=== PATIENT | male | born 1950 | race Caucasian/White ===

== ENCOUNTER 2019-01-16 09:29 | Outpatient (CLI) | payer MEDICARE, BC, SELFPAY ==
--- NOTE | 2019-01-16 09:30 | DI.RAD_ITS ---
SYMPTOM/DIAGNOSIS: ACUTE, CHRONIC SHOULDER PAIN M25.519 RIGHT SHOULDER: There is spurring at the AC joint and inferior aspect of the acromion. Prominent spurring is also noted at the glenoid. Spurring is also seen at the lesser tuberosity. The humeral head appears normally positioned. IMPRESSION: Moderate degenerative changes of A-C joint and glenohumeral joint.
== END 2019-01-16 09:49 ==
PROVIDERS: PCP Family Medicine; Visit Provider Family Medicine
DX: M25.511 Pain in right shoulder (principal); M19.011 Primary osteoarthritis, right shoulder
CPT/HCPCS: 73030

== ENCOUNTER → 2019-01-28 08:55 | Outpatient (BNVA) | payer MEDICARE, BC, SELFPAY | PROVIDERS: PCP Family Medicine; Referring Provider Family Medicine; Visit Provider Orthopaedic Surgery | DX: M75.81 Other shoulder lesions, right shoulder (principal); M19.011 Primary osteoarthritis, right shoulder | CPT/HCPCS: 99202; 99203 ==

== ENCOUNTER → 2019-03-17 08:57 | Outpatient (BNVA) | payer MEDICARE, BC, SELFPAY | PROVIDERS: PCP Family Medicine; Referring Provider Family Medicine; Visit Provider Orthopaedic Surgery | DX: M75.81 Other shoulder lesions, right shoulder (principal); M19.011 Primary osteoarthritis, right shoulder | CPT/HCPCS: 99213 ==

== ENCOUNTER 2019-09-08 02:08 | Outpatient (CLI) | payer MEDICARE, BC, SELFPAY ==
[2019-09-08 10:22] LABS: ALT 30 U/L (16-63); AST 22 U/L (15-37); Albumin 3.6 g/dL (3.4-5.0); Alkaline Phosphatase 63 U/L (46-116); Anion Gap 6.6 mmol/L (3-11); BUN 16 mg/dL (7-18); Bilirubin, Total 0.4 mg/dL (0.2-1.0); CO2 32.4 mmol/L (21.0-32.0); Calcium 8.7 mg/dL (8.5-10.1); Calculated LDL 88 mg/dL (<100); Chloride 104 mmol/L (98-107); Cholesterol 163 mg/dL (<200); Glucose 94 mg/dL (74-106); HDL Cholesterol 64 mg/dL (40-60); Potassium 4.4 mmol/L (3.5-5.1); Sodium 143 mmol/L (136-145); Total Protein 6.8 g/dL (6.4-8.2); Triglyceride 59 mg/dL (<150)
[2019-09-08 10:32] LABS: Uric Acid 5.9 mg/dL (3.5-7.2)
== END 2019-09-08 02:28 ==
PROVIDERS: PCP Family Medicine; Visit Provider Family Medicine
DX: M10.9 Gout, unspecified (principal); E78.5 Hyperlipidemia, unspecified
CPT/HCPCS: 36415; 80053; 80061; 84550

== ENCOUNTER 2020-03-25 07:38 | Outpatient (CLI) | payer MEDICARE, BC, SELFPAY ==
[2020-03-28 08:17] LABS: SARS-CoV-2 RNA Undetected (Undetected); SARS-CoV-2 Specimen Source Nasopharynx
== END 2020-03-25 07:58 ==
PROVIDERS: PCP Family Medicine; Visit Provider Family Medicine
DX: Z11.59 Encounter for screening for other viral diseases (principal)
CPT/HCPCS: U0003

== ENCOUNTER 2021-09-06 01:38 | Outpatient (CLI) | payer MEDICARE, BC, SELFPAY ==
[2021-09-06 22:29] LABS: PSA, Screening 0.6 ng/mL (0.0-6.5)
== END 2021-09-06 01:39 | disposition home or self-care (01) ==
LOC: LBO 01:38
PROVIDERS: PCP Family Medicine; Visit Provider Family Medicine
DX: Z12.5 Encounter for screening for malignant neoplasm of prostate (principal); Z80.42 Family history of malignant neoplasm of prostate
CPT/HCPCS: 36415; 84153

== ENCOUNTER 2022-10-01 15:19 | Outpatient (CLI) | payer MEDICARE, BC, SELFPAY ==
[2022-10-01 15:24] LABS: ALT 32 U/L (16-63); AST 24 U/L (15-37); Albumin 3.8 g/dL (3.4-5.0); Alkaline Phosphatase 66 U/L (46-116); BUN 13 mg/dL (7-18); Bilirubin, Total 0.7 mg/dL (0.2-1.0); CREATININE 0.9 mg/dL (0.70-1.30); Chloride 105 mmol/L (98-107); Estimated GFR 90.18 (mL/min/1.73m2); Glucose 92 mg/dL (74-106); Potassium 4.2 mmol/L (3.5-5.1); Sodium 142 mmol/L (136-145); Total Protein 7.3 g/dL (6.4-8.2)
[2022-10-02 00:33] LABS: PSA, Screening 0.7 ng/mL (<=6.5)
== END 2022-10-01 15:20 | disposition home or self-care (01) ==
LOC: LBO 15:20
PROVIDERS: PCP Family Medicine; Visit Provider Family Medicine
DX: E78.5 Hyperlipidemia, unspecified (principal); M10.9 Gout, unspecified; Z12.5 Encounter for screening for malignant neoplasm of prostate; Z80.42 Family history of malignant neoplasm of prostate
CPT/HCPCS: 36415; 80053; 84153

== ENCOUNTER → 2023-06-04 10:19 | Outpatient (BNVA) | payer MEDICARE, BC, SELFPAY | PROVIDERS: PCP Family Medicine; Referring Provider Family Medicine; Visit Provider Surgery | DX: K64.1 Second degree hemorrhoids (principal) | CPT/HCPCS: 99203 ==

== ENCOUNTER 2023-10-09 04:21 | Outpatient (CLI) | payer MEDICARE, BC, SELFPAY ==
[2023-10-10 18:34] LABS: PSA, Screening 0.7 ng/mL (<=6.5)
[2023-10-10 19:14] LABS: Hepatitis C Ab w Rflx HCV PCR Negative (Negative)
== END 2023-10-09 04:22 | disposition home or self-care (01) ==
LOC: LBO 04:21
PROVIDERS: PCP Family Medicine; Visit Provider Family Medicine
DX: Z80.42 Family history of malignant neoplasm of prostate (principal); Z11.3 Encounter for screening for infections with a predominantly sexual mode of transmission
CPT/HCPCS: 36415; 84153; 86803

== ENCOUNTER 2024-05-01 11:14 | Outpatient (CLI) | payer MEDICARE, BC, SELFPAY ==
[2024-05-01 12:15] LABS: FREE T4 0.69 ng/dL (0.76-1.46)
== END 2024-05-01 11:15 | disposition home or self-care (01) ==
LOC: LBO 11:15
PROVIDERS: PCP Family Medicine; Visit Provider Nurse Practitioner Family
DX: G47.9 Sleep disorder, unspecified (principal)
CPT/HCPCS: 36415; 84439; 84443

== ENCOUNTER 2024-06-29 03:33 | Outpatient (CLI) | payer MEDICARE, BC, SELFPAY ==
[2024-06-29 12:09] LABS: FREE T4 0.63 ng/dL (0.76-1.46)
== END 2024-06-29 03:34 | disposition home or self-care (01) ==
LOC: LBO 03:33
PROVIDERS: PCP Family Medicine; Visit Provider Nurse Practitioner Family
DX: G47.62 Sleep related leg cramps (principal); R79.89 Other specified abnormal findings of blood chemistry; H35.30 Unspecified macular degeneration; L71.9 Rosacea, unspecified
CPT/HCPCS: 36415; 84439; 84443

== ENCOUNTER 2024-09-02 01:09 | Outpatient (CLI) | payer MEDICARE, BC, SELFPAY ==
--- OUTSIDE RECORDS SUMMARY | 2024-09-02 01:47 | XMS_ITS | Encounter Summary ---
Author Organization [facility] Address [address] [place] [address] Care Team Providers Care Bottom Sprayer Name Role Phone Unavailable Primary Care Provider Unavailabl e Encounter Details Date Type Department Care Team (Late st Contact Info) Description 04/01/2003 Results Only [facility] [address] [place] [address] Jaime Alex MD [address] [place] [phone] Social History Tobacco Use Types Packs/Day Years Used Date Smoking Tobacco: Never Assessed Sex and Gender Information Value Date Recorded Sex Assigned at Not on file Legal Sex Male 13:46 EST Gender Identity Male 07/11/2020 13:56 EST Sexual Orientation Not on file documented as of this encounter Plan of Treatment Upcoming Encounters Date Type Department Care Team (Late st Contact Info) Description 10/09/2024 14:45 EDT Office Visit [facility] [address] [place] [address] Basia Latham MD [address] [place] [phone] documented as of this encounter Procedures Procedure Name Priority Date/Time Associated Diagnosis Comments SURGICAL PATHOLOGY Routine 04/01/2003 0:00 EDT documented in this encounter Results * SURGICAL PATHOLOGY (04/01/2003 0:00 EDT) Pathology Report: SURGICAL PATHOLOGY REPORT Reports generated via electronic interface contain original data; however they are lacking the format of the original report. Caution should be taken when reading/interpreti ng unformatted reports. Name: ? SHEKHAR THOMASON ? Accession #: ? [id number] ? : ? 1950 (Age: 52) ??F ? Collect Date: ? 04/01/2003 ? Location: ? [facility] ? Receive Date: ? 04/02/2003 ? Provider: CINDY ALEX MD Copy to: MARIA EUGENIA CLAY MD ? Final Pathologic Diagnosis: ? Soft tissue, left upper arm, excisional biopsy: - Follicular cyst, infundibular type. Document reviewed and electronically signed by: Nicholas Sherman MD Report ??Date: 04/08/2003 17:14 By the signature above, the attending physician certifies that he/she has personally conducted a gross and/or microscopic examination of the described specimens and rendered or confirmed the above diagnosis. Specimen(s) Received: ? Cyst ??left upper arm Clinical History: ? Sebaceous cyst L arm Gross Description: ? Received in formalin labelled Paddy and cyst L arm is a bosch-pink smooth to wrinkled skin ellipse measuring 2.3 x 0.7 cm and is excised to a depth of 1.4 cm. ??Upon sectioning, the cut surfaces reveal a 1.5 cm in greatest dimension bosch-white thin walled cyst-like structure which exudes a art-white friable sebaceous material. ??The specimen is inked, serially sectioned, and a c s s representative section is submitted in one cassette. ??(Bernardo Billings)/[facility] End of Report ZANE PAGE 04/01/2003 04/02/2003 15: 27 EDT us Jaime Alex MD PATHOLOGY ORDERABLES Final Res ult Performing Organization Address City/State/[facility] Co de Phone Number ZANE [facility] [address] [place] [address] documented in this encounter Visit Diagnoses Not on filedocumented in this encounter
--- OUTSIDE RECORDS SUMMARY | 2024-09-02 01:47 | XMS_ITS | Encounter Summary ---
Author Organization [facility] Address [address] [place] [address] Care Team Providers Care Stone Layout Marker Name Role Phone Ramana Rajput DO Primary Care Provider [phone] Reason for Visit * Reason Comments Follow-up Early-moderate dry s tage nonexudative age-related macular degeneration of right eye, drusen/early AMD left eye - here for a complete exam Encounter Details Date Type Department Care Team (Late st Contact Info) Description 08/29/2022 8:00 EST Office Visit [facility] [address] [place] [address] Basia Latham MD [address] [place] [phone] Social History Tobacco Use Types Packs/Day Years Used Date Smoking Tobacco: Never Smokeless Tobacco: Never Interpersonal Safety Answer Date Record ed Physically Hurt Never 07/11/2020 Verbally Threaten Not on file 07/11/2020 Sex and Gender Information Value Date Recorded Sex Assigned at Not on file Legal Sex Male 13:46 EST Gender Identity Male 07/11/2020 13:56 EST Sexual Orientation Not on file documented as of this encounter Progress Notes * Basia Latham MD - 08/29/2022 0800 EST Chief Complaint Patient presents with ??? Follow-up Early-moderate dry stage nonexudative age-related macular degeneration of right eye, drusen/early AMD left eye - here for a complete exam HPI The patient is a 72 y.o. male with h/o early-moderate dry AMD, both eyes, for years. Has continued Preservision AREDS 2 bid. Has not been using Amsler grid regularly- last checked it about 1 1/2 months ago, did not see any changes. Has not been using Sudoku puzzles to check for vision changes. Fhx AMD. Happy with current Rx. Right Eye: NL Left Eye: NL Visual Aid: Glasses Current Rx Age Location: Pain: 0 - No pain Quality: Severity: Duration: Timing: Lasts: Context: Vision has been stable, uses Amsler grid occas has not noticed any changes - last used 1.5months ago. No flashes of light or floaters, no pain. Modifying factors: AREDS 2 bid Associated Signs & Symptoms: Attestation: ROS Constitutional: NL ENT/Mouth NL Cardiovascular: High Cholesterol Respiratory: NL Gastrointestinal: NL Genitourinary: NL Musculoskeletal: NL Integumentary: NL Neurologic: NL Psychiatric: NL Endocrine: NL Hematologic: NL Immunologic: NL Sprayer Hand: Exposures: None Other: Attestation: Base Eye Exam Visual Acuity (Snellen - Linear) Right Left Dist cc 20/20 20/20 Correction: Glasses Tonometry (Applanation, 8:11) Right Left Pressure 21 21 Pupils Pupils APD Right PERRL None Left PERRL None Visual Nielsen (Counting fingers) Right Left Full Full Extraocular Movement Right Left Full Full Neuro/Psych Oriented x3: Yes Mood/Affect: Normal Dilation Both eyes: Tropicamide 1%, Phenylephrine 2.5% @ 8:11 Slit Lamp and Fundus Exam External Exam Right Left External Normal Normal Slit Lamp Exam Right Left Lids/Lashes Dermatochalasis - upper lid Dermatochalasis - upper lid Conjunctiva/Sclera White and quiet White and quiet Cornea Clear Clear Anterior Chamber Deep and quiet Deep and quiet Iris Round and reactive Round and reactive Lens 1+ Nuclear sclerosis 1+ Nuclear sclerosis Fundus Exam Right Left Vitreous Normal Posterior vitreous detachment Disc Normal Normal C/D Ratio 0.2 0.15 Macula RPE changes, atrophy, tiny drusen Few drusen Vessels Normal Normal Periphery Drusen in superior arcades Drusen in superior arcades Refraction Wearing Rx Sphere Cylinder [place] Add Right -1.75 +1.75 019 +2.25 Left -1.00 +1.50 174 +2.25 Manifest Refraction Pt deferred MRx DIAGNOSTIC TESTS: OCT, Retina - OU - Both Eyes OCT macula Right: signal strength: 09/10, thickness 263 microns, normal foveal contour, no intra/subretinal fluid, irregular rpe, cystoid space Left: signal strength: 10/10, thickness 280 microns, normal foveal contour, no intra/subretinal fluid IMPRESSION & PLAN: ??? Intermediate stage nonexudative age-related macular degeneration of right eye/Early dry stage nonexudative age-related macular degeneration of left eye - stable on OCT today 08/29/2022. - continue AREDS 2 bid - incorporate dark leafy greens into diet (kale, chard, spinach) and colorful fruits and vegetables - Amsler grid weekly, may also use Shopou puzzles - f/u vision changes - return in 1 year for a complete exam + mac OCT ??? Nuclear senile cataract of both eyes - not visually significant - Observe ??? Posterior vitreous detachment of left eye - retina flat with no holes/tears/retinal detachment - call for increase in flashes or floaters, decreased vision ??? Refractive error - continue current Rx I have reviewed the patient's past medical, family, social and surgical history. I have also reviewed the patient's medications, allergies, and problem list. I performed my own HPI and have reviewed the tech's ROS as well. I completed this exam personally. No procedures were performed at the time of the visit. Basia Latham MD I am scribing for Basia Latham MD, while she is personally performing the service. ALTHEA Leary Patient Education Topic: macular degeneration Method: Verbal Taught to: Patient Barriers: None Outcomes: independent and verbalized understanding Signature: Basia Latham MD documented in this encounter Plan of Treatment Upcoming Encounters Date Type Department Care Team (Late st Contact Info) Description 10/09/2024 14:45 EDT Office Visit [facility] [address] [place] [address] Basia Latham MD [address] [place] [phone] documented as of this encounter Procedures Procedure Name Priority Date/Time Associated Diagnosis Comments OCT, RETINA - OU - BOTH EYES Routine 08/29/2022 8:52 EST Early dry stage nonexudative age-related macular degeneration of left eye documented in this encounter Results * OCT, RETINA - OU - BOTH EYES (08/29/2022 8:52 EST) Narrative [facility] OPHTHALMOLOGY - 08/29/2022 8:52 EST OCT macula Right: signal strength: 09/10, thickness 263 microns, normal foveal contour, no intra/subretinal fluid, irregular rpe, cystoid space Left: signal strength: 10/10, thickness 280 microns, normal foveal contour, no intra/subretinal fluid us Basia Latham MD OPHTH TOMOGRAPHY Final Resu lt [facility] OPHTHALMOLOGY documented in this encounter Visit Diagnoses Diagnosis Intermediate stage nonexudative age-related macular degeneration of right eye- Primary Early dry stage nonexudative age-related macular degeneration of left eye Nuclear senile cataract of both eyes Posterior vitreous detachment of left eye Vitreous degeneration Refractive error Unspecified disorder of refraction and accommodation documented in this encounter Discontinued Medications Medication Sig Discontinue Reason Start Date End Da te aspirin chewable 81 mg tablet Take 81 mg by mouth every 48 hours. Patient Stopped Taking 08/29/2022 UNABLE TO FIND 2 Capsule(s) daily. Med Name: Systane I- Caps Alternate therapy 08/29/2022 documented as of this encounter Historical Medications * This list may reflect changes made after this encounter. amLODIPine (NORVASC) 2.5 mg tablet Take 1 Tablet by mouth daily. For Reynalds - only takes it as needed for cold 06/07/2022 added in this encounter Eye Exam Visual Acuity (Snellen - Linear) Right eye Left eye Dist cc 20/20 20/20 Correction: Glasses Tonometry (Applanation, 8:11) Right eye Left eye Pressure 21 21 Pupils Pupils APD Right eye PERRL None Left eye PERRL None Visual Nielsen (Counting fingers) Right eye Left eye Full Full Extraocular Movement Right eye Left eye Full Full Neuro/Psych Oriented x3: Yes Mood/Affect: Normal Dilation Both eyes: Tropicamide 1%, P henylephrine 2.5% @ 8:11 External Exam Right eye Left eye External Normal Normal Slit Lamp Exam Right eye Left eye Lids/Lashes Dermatochalasis - upper lid Derm atochalasis - upper lid Conjunctiva/Sclera White and quiet White and oscar et Cornea Clear Clear Anterior Chamber Deep and quiet Deep and quiet Iris Round and reactive Round and tiburcio ctive Lens 1+ Nuclear sclerosis 1+ Nuclear sclerosis Fundus Exam Right eye Left eye Posterior Vitreous Normal Posterior vit reous detachment Disc Normal Normal C/D Ratio 0.2 0.15 Macula RPE changes, atrophy, tiny druse n Few drusen Vessels Normal Normal Periphery Drusen in superior arcades Druse n in superior arcades Wearing Rx Sphere Cylinder [place] Add Right eye -1.75 +1.75 019 +2.25 Left eye -1.00 +1.50 174 +2.25 Manifest Refraction Pt deferred MRx Care Teams Stone Layout Marker Relationship Specialty Start Date End Date Ramana Rajput DO [address] [place] [phone] PCP - General Family Medicine - Primary Care 03/17/21 documented as of this encounter
--- OUTSIDE RECORDS SUMMARY | 2024-09-02 01:47 | XMS_ITS | Encounter Summary ---
Author Organization [facility] Address [address] [place] [address] Care Team Providers Care Ship Loader Name Role Phone Martínez Jimenez MD Primary Care Provider U fadi Encounter Details Date Type Department Care Team (Latest Contact Info) Description 08/01/2020 Travel Social History Tobacco Use Types Packs/Day Years Used Date Smoking Tobacco: Never Smokeless Tobacco: Never Interpersonal Safety Answer Date Record ed Physically Hurt Never 07/11/2020 Verbally Threaten Not on file 07/11/2020 Sex and Gender Information Value Date Recorded Sex Assigned at Not on file Legal Sex Male 13:46 EST Gender Identity Male 07/11/2020 13:56 EST Sexual Orientation Not on file COVID-19 Exposure Response Date Recorded In the last month, have you been in contact with someone who was confirmed or suspected to have Coronavirus / COVID-19? No / Unsure 08/01/2020 13:47 EST documented as of this encounter Plan of Treatment Upcoming Encounters Date Type Department Care Team (Late st Contact Info) Description 10/09/2024 14:45 EDT Office Visit [facility] [address] [place] [address] Basia Latham MD [address] [place] [phone] documented as of this encounter Visit Diagnoses Not on filedocumented in this encounter Care Teams Ship Loader Relationship Specialty Start Date End Date Martínez Jimenez MD PCP - General 07/11/20 03/16/21 documented as of this encounter
--- OUTSIDE RECORDS SUMMARY | 2024-09-02 01:47 | XMS_ITS | Encounter Summary ---
Author Organization [facility] Address [address] [place] [address] Care Team Providers Care Reconciliation Manager Name Role Phone Ramana Rajput Primary Care Provider [phone] Encounter Details Date Type Department Care Team (Late st Contact Info) Description 03/17/2021 Results Only Imaging [facility] Radiology Results [address], [place] [phone] Jose Davila, PA-C [address] [place] [phone] Social History Tobacco Use Types Packs/Day Years [...] Info) Description 10/09/2024 14:45 EDT Office Visit [facility] [address] [place], [place] [address] Basia Latham MD [address] [place] [phone] documented as of this encounter Procedures Procedure Name Priority Date/Time Associated Diagnosis Comments XR CHEST 1 VIEW 03/17/2021 15:20 EDT documented in this encounter Results * XR CHEST 1 VIEW (03/17/2021 15:20 EDT) Anatomical Region Laterality Modality Computed Radiogr aphy 03/17/2021 15:1 6 EDT Narrative 03/17/2021 15:20 EDT ? EXAM: RADIOLOGY/CHEST-PORTABLE ?EX. D/ (1504) ? CLINICAL INFORMATION: ? FOUO ? CHEST-PORTABLE ? Signs and Symptoms/Comments: ??Fever of unknown origin ? Comparisons: None ? FINDINGS: ? An upright AP view of the chest was performed. The lungs are clear. ? No pneumothorax or pleural effusion is present. The cardiomediastinal ? silhouette and pulmonary vascularity are unremarkable. The osseous ? structures are unremarkable. ? IMPRESSION: ? No acute cardiopulmonary process. ? REPORT SIGNED IN OTHER VENDOR SYSTEM 03/17/2021 ?Reported By: Maxim Jacques MD ? CC: ? Transcribed Date/Time: 03/17/2021 (1520) ? Access Coordinator: ? Printed Date/Time: 03/17/2021 (1520) ? PAGE 1 ? Signed Report ? Procedure Note Maxim Jacques MD - 03/17/2021 EXAM: RADIOLOGY/CHEST-PORTABLE EX. D/ (2214) CLINICAL INFORMATION: FOUO CHEST-PORTABLE Signs and Symptoms/Comments: Fever of unknown origin Comparisons: None FINDINGS: An upright AP view of the chest was performed. The lungs are clear. No pneumothorax or pleural effusion is present. Thecardiomediastinal silhouette and pulmonary vascularity are unremarkable. The osseous structures are unremarkable. IMPRESSION: No acute cardiopulmonary process. REPORT SIGNED IN OTHER VENDOR SYSTEM 03/17/2021 Reported By: Maxim Jacques MD CC: Transcribed Date/Time: 03/17/2021 (781) Access Coordinator: Printed Date/Time: 03/17/2021 (605) PAGE 1 Signed Report Jose Davila PA-C IMG DIAGNOSTIC IMAGING RAMILA MYERS Final Result documented in this encounter Visit Diagnoses Not on filedocumented in this encounter Care Teams Reconciliation Manager Relationship Specialty Start Date End Date Ramana Rajput DO [address] [place] [phone] PCP - General Family Medicine - Primary Care 03/17/21 documented as of this encounter
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
--- OUTSIDE RECORDS SUMMARY | 2024-09-02 01:47 | XMS_ITS | Encounter Summary ---
Author Organization [facility] Address [address] [place] [address] Care Team Providers Care Wax Machine Operator Name Role Phone Ramana Rajput Nola CARVALHO Primary Care Provider [phone] Encounter Details Date Type Department Care Team (Late st Contact Info) Description 03/17/2021 Results Only [facility] [place] [facility] [place] [address] [place], [place] [address] Jose Davila, PA-C [address] [place] [phone] Social History Tobacco Use Types Packs/Day Years [...] Info) Description 10/09/2024 14:45 EDT Office Visit [facility] Ophthalmology [facility] [address] [place] [address], [place] [address] Basia Latham MD [address] [place] [phone] documented as of this encounter Procedures Procedure Name Priority Date/Time Associated Diagnosis Comments SHIGA TOXINS 1 & 2 - [facility] Routine 03/17/2021 16:55 EDT C. DIFFICILE PCR Routine 03/17/2021 16:5 5 EDT COVID-19 TESTING Routine 03/17/2021 15:3 5 EDT BLOOD CULTURE - [facility] Routine 03/17/2021 15:10 EDT MISCELLANEOUS TEST, H[place]LEY Routine 03/17/2021 15:08 EDT BLOOD CULTURE - [facility] Routine 03/17/2021 13:35 EDT TICK PANEL PCR - [facility] Routine 03/17/2021 13:35 EDT LACTIC ACID SEPSIS REFLEX - [facility] Routine 03/17/2021 13:35 EDT LYME AB Routine 03/17/2021 13:35 EDT COMPLETE BLOOD COUNT AND DIFFERENTIAL Routine 03/17/2021 13:35 EDT C REACTIVE PROTEIN Routine 03/17/2021 13 :35 EDT COMPREHENSIVE METABOLIC PANEL (CMP) Routine 03/17/2021 13:35 EDT documented in this encounter Results * SHIGA TOXINS 1 & 2 - [facility] (03/17/2021 16:55 EDT) Pathologist [facility] E.COLI SHINGA TOXIN 1 - [facility] E.COLI SHIGA TOXIN 1 NOT DETECTED 03/18/2021 11:40 EDT [facility] E.COLI SHIGA TOXIN 2 - [facility] E.COLI SHIGA TOXIN 2 NOT DETECTED 03/18/2021 11:40 EDT [facility] E.COLI SHINGA TOXINS 1 - [facility] SALMONELLA RESULTS CALLED TO JOSHUA FISHMAN, EMERGENCY DEPARTMENT, 03/21/21 0738 TESTING PERFORMED AT [facility]; RESULT: Salmonella subspecies: Salmonella subspecies I Salmonella formula name: 9,12:I,z28:1,5 Salmonella identification: Salmonella javiana identified 03/30/2021 11:57 EDT [facility] E.COLI [id number] 03/30/2021 11:57 EDT [facility] NO SHIGELLA SP. ISOLATED 03/30/2021 11:57 EDT [facility] NO CAMPYLOBACTER SP. ISOLATED 03/30/2021 11:57 EDT [facility] SALMONELLA SPECIES - [facility] SASP 03/30/2021 11:57 EDT [facility] QUANT - [facility] MANY 03/30/2021 11:57 EDT [facility] Comment: ?* This is a supplemental result. * ? A prior result that was reported as final has been changed. Feces 03/17/2021 16:5 5 EDT 03/17/2021 16:58 EDT Jose Davila PA-C HEMATOLOGY & PF4 ORDERABLES Final Result [facility] [address] [place] [address] * C. DIFFICILE PCR (03/17/2021 16:55 EDT) C. difficile PCR Neg 03/17/2021 17:57 EDT [facility] 027,NAP1,BI STRAIN - [facility] Neg 03/17/2021 17:57 EDT [facility] Comment:Presumptive negative for 027, NAP1, BI strain. 03/17/2021 16:5 5 EDT 03/17/2021 16:58 EDT Narrative [facility] - 03/17/2021 17:57 EDT Has PT had at least 3 loose/liquid movements in last 24hrs? Y Has PT recd laxative,bowel prep or enema in last 48 hrs? N Has PT had a CDIFF stool sample in the past 7 days? N Has PT had a POS CDIFF stool sample in the last 30 days? N Jose Davila PA-C MICROBIOLOGY - GENERAL ORDE [place] Final Result [facility] [address] [place] [address] * COVID-19 TESTING (03/17/2021 15:35 EDT) Pathologist [facility] COVID-19 rt-PCR Result Not Detected 03/17/2021 16:31 EDT [facility] Comment: This assay is designed to detect the RNA of SARS-CoV-2 using nucleic acid amplification. ??A Not Detected result does not preclude the possibility of SARS-CoV-2 infection since the adequacy of sample collection and/or low viral burden may result in the presence of viral nucleic acids below the analytical sensitivity of this test method. ??Test results should not be used as the sole basis for treatment or other management decisions and must be used with other clinical, epidemiological and laboratory data in making the diagnosis. This test has not been FDA cleared or approved. ??This test has been authorized by FDA under an EUA for use by authorized laboratories. ??This test has been authorized only for detection of nucleic acid from 2019-nCoV, not for any other viruses or pathogens. ??This test is only authorized for the duration of the declaration that circumstances exist justifying the authorization of emergency use of in vitro diagnostic tests for detection and / or diagnosis of 2019-nCoV under section 564(b) (1) of Act, 21 U.S.C 360bbb-3(b)(1) unless the authorization is terminated or revoked sooner. Performed on the Intermolecular GeneXpert Instrument at [facility] [id number] 03/17/2021 15:3 5 EDT 03/17/2021 15:35 EDT Narrative [facility] - 03/17/2021 16:31 EDT FLUVID PATIENT STATUS: A [facility] 1 FLUVID Jose Davila PA-C MICROBIOLOGY - GENERAL ORDE RABLES Final Result Performing Organization Address City/[facility]/ZIP Co de Phone Number [facility] [address] [place] [address] * BLOOD CULTURE - [facility] (03/17/2021 15:10 EDT) [facility] Signature BLOOD CULTURE - [facility] 03/23/2021 7:08 EDT [facility] BLOOD CULTURE - [facility] NO GROWTH AT 5 DAYS 03/23/2021 7:08 EDT [facility] Blood 03/17/2021 15:1 0 EDT 03/17/2021 15:17 EDT Comment:PERIP Jose Davila PA-C CHEMISTRY & BLOOD GAS ORDER ALVARO Edited Result - Final Performing Organization Address [facility]/ZIP Co de Phone Number [facility] [address] [place] [address] * MISCELLANEOUS TEST, ANSONIA (03/17/2021 15:08 EDT) MISCELLANEOUS TEST - [facility] SEE BELOW () 03/28/2021 17:40 EDT [facility] Comment: Test ?Result ?Flag ??Unit ??RefValue Giardia Ag, F ? Negative ?Negative ADDITIONAL INFORMATION Test Performed by [employer] Immunoassay. Test Performed by: [facility] - [address] [address] Cosmetology Professor: Cain Duckworth M.D. Ph.D.; CLIA# [id number] 03/17/2021 15:0 8 EDT 03/24/2021 8:01 EDT Jose Davila PA-C CHEMISTRY & BLOOD GAS ORDER ALVARO Final Result Performing Organization Address [facility] Co de Phone Number [facility] [address] [place] [address] * BLOOD CULTURE - [facility] (03/17/2021 13:35 EDT) BLOOD CULTURE - [facility] 03/22/2021 15:01 EDT [facility] BLOOD CULTURE - [facility] NO GROWTH AT 5 DAYS 03/22/2021 15:01 EDT [facility] Blood 03/17/2021 13:3 5 EDT 03/17/2021 14:12 EDT Comment:PERIP Jose Davila PA-C CHEMISTRY & BLOOD GAS ORDER ALVARO Edited Result - Final Performing Organization Address [facility] Co de Phone Number [facility] [address] [place] [address] * TICK PANEL PCR - [facility] (03/17/2021 13:35 EDT) ANAPLASMA PHAGOCYTOPHILIUM - [facility] Negative Negative 03/21/2021 4:18 EDT [facility] BABESIA DIVERGENS/MO-1 - [facility] Negative Negative 03/21/2021 4:18 EDT [facility] Comment: ADDITIONAL INFORMATION This test was developed and its performance characteristics determined by [facility] in a manner consistent with CLIA requirements. This test has not been cleared or approved by the U.S. Food and Drug Administration. BABESIA DUNCANI - [facility] Negative Negative 03/21/2021 4:18 EDT [facility] BABESIA MICROTIC - [facility] Negative Negative 03/21/2021 [facility] B.MIYAMOTOI PCR Negative Negative 4:18 EDT [facility] Comment: ADDITIONAL INFORMATION This test was developed and its performance characteristics determined by [facility] in a manner consistent with CLIA requirements. This test has not been cleared or approved by the U.S. Food and Drug Administration. Test Performed by: [place] [address] Cosmetology Professor: Cain Duckworth M.D. Ph.D.; CLIA# [id number] EHRLICHIA CHAFFEENSIS - [facility] Negative Negative 03/21/2021 4:18 EDT [facility] EHRLICHIA EWINGII/CANIS - [facility] Negative Negative 03/21/2021 4:18 EDT [facility] EHRLICHIA MURIS-LIKE - [facility] Negative Negative 03/21/2021 4:[facility] Comment: ADDITIONAL INFORMATION This test was developed and its performance characteristics determined by [facility] in a manner consistent with CLIA requirements. This test has not been cleared or approved by the U.S. Food and Drug Administration. 03/17/2021 13:3 5 EDT 03/17/2021 14:11 EDT Jose Davila PA-C CHEMISTRY & BLOOD GAS ORDER ALVARO Final Result [facility] [address] [place] [address] * LYME AB (03/17/2021 13:35 EDT) Pathologist [facility] Lyme Ab IgG NEGATIVE 03/20/2021 10:20 EDT [facility] Lyme Ab NEGATIVE 03/20/2021 10:20 EDT [facility] 03/17/2021 13:3 5 EDT 03/17/2021 14:11 EDT Jose Davila PA-C IMMUNOLOGY AND SEROLOGY ORD ERABLES Final Result [facility] [address] [place] [address] * (ABNORMAL) COMPLETE BLOOD COUNT AND DIFFERENTIAL (03/17/2021 13:35 EDT) [facility] ABSOLUTE NEUTROPHIL COUN - [facility] 3.66 1.7 - 7.0 10e3/ul 03/17/2021 14:57 [facility] ATYPICAL LYMPHOCYTES - [facility] 5 % 03/17/2021 14:57 [facility] BANDS - [facility] 17(H) 0 - 3 % 03/17/2021 14:57 [facility] HEMATOCRIT - [facility] 37.0(L) 39.5 - 50.2 % 03/17/2021 14:18 [facility] HEMOGLOBIN - [facility] 13.2(L) 13.8 - 17.3 g/dl 03/17/2021 14:18 [facility] LYMPH # - [facility] 1.92 0.9 - 2.9 10e3/uL 03/17/2021 14:57 [facility] LYMPHOCYTES - [facility] 26 20 - 40 % 2020 14:57 [facility] MEAN CORPUSCULAR HGB - [facility] 31.4 27.6 - 33.0 pg 03/17/2021 14:18 [facility] MEAN CORPUSCULAR HGB CONC - [facility] 35.7 32.8 - 36.4 g/dL 03/17/2021 14:18 [facility] MEAN CELL VOLUME - [facility] 88.1 81 - 95 fl 03/17/2021 14:18 EDT [facility] METAMYELOCYTE - [facility] 2(H) 0 - 1 % 03/17/2021 14:57 EDT [facility] MONO # - [facility] 0.49 0.3 - 0.9 10e3/uL 03/17/2021 14:57 EDT [facility] MONOCYTE - [facility] 8 0 - 12 % 14:57 EDT [facility] PLATELET COUNT 164 141 - 377 10e3/ul 03/17/2021 14:18 EDT [facility] NEUTROPHILS - [facility] 42 40 - 80 % 2020 14:57 EDT [facility] RED BLOOD COUNT - [facility] 4.20(L) 4.36 - 5.78 10e6/ul 03/17/2021 14:18 EDT [facility] RED CELL DISTRI WIDTH - [facility] 12.1 <14.2 % 03/17/2021 14:18 EDT [facility] WHITE BLOOD COUNT - [facility] 6.2 4.0 - 10.4 10e3/ul 03/17/2021 14:18 EDT [facility] 03/17/2021 13:3 5 EDT 03/17/2021 14:12 EDT Jose Davila PA-C PACKAGES & DNA PROBE ORDERA BLES Final Result Performing Organization Address City/State/[facility] Co de Phone Number [facility] [address] [place] [phone] * (ABNORMAL) C REACTIVE PROTEIN (03/17/2021 13:35 EDT) C-Reactive Protein 267.1(H) <10.0 mg/L 03/17/2021 14:53 EDT [facility] 03/17/2021 13:3 5 EDT 03/17/2021 14:12 EDT Jose Davila PA-C CHEMISTRY & BLOOD GAS ORDER ALVARO Final Result [facility] [address] [place] [address] * (ABNORMAL) COMPREHENSIVE METABOLIC PANEL (CMP) (03/17/2021 13:35 EDT) Albumin % 3.7 3.4 - 4.9 g/dL 03/17/2021 14:26 [facility] ALKALINE PHOSPHATASE - [facility] 59 38 - 126 U/L 03/17/2021 14:26 [facility] BILIRUBIN TOTAL 0.6 0.2 - 1.3 mg/dL 03/17/2021 14:26 [facility] BUN - [facility] 14 10 - 26 mg/dL 03/17/2021 14:26 [facility] CALCIUM - [facility] 8.1(L) 8.5 - 10.5 mg/dL 03/17/2021 14:26 [facility] Chloride 94(L) 96 - 110 mmol/L 03/17/2021 14:26 [facility] CO2 Total 25 21 - 32 mEq/L 03/17/2021 14:26 [facility] CREATININE 0.85 0.66 - 1.25 mg/dL 03/17/2021 14:26 [facility] eGFR >60 03/17/2021 14:26 [facility] Comment: Chronic renal impairment is defined as GFR <60 Multiply result by 1.210 for patients. Anion Gap 12 0 - 18 03/17/2021 14:26 [facility] GLUCOSE - [facility] 130(H) 70 - 100 mg/dL 03/17/2021 14:26 [facility] Potassium 3.8 3.5 - 5.0 mEq/L 03/17/2021 14:41 [facility] Sodium 131(L) 136 - 145 mEq/L 03/17/2021 14:26 [facility] TOTAL PROTEIN - [facility] 6.3 6.2 - 8.2 gm/dL 03/17/2021 14:26 [facility] SGOT/AST - [facility] 35 17 - 59 U/L 03/17/2021 14:26 EDT [facility] SGPT/ALT - [facility] 28 0 - 50 U/L 14:26 EDT [facility] 03/17/2021 13:3 5 EDT 03/17/2021 14:12 EDT Jose Davila PA-C CHEMISTRY & BLOOD GAS ORDER ALVARO Final Result Performing Organization Address City/[facility]/ZIP Co de Phone Number [facility] [address] [place] [address] * LACTIC ACID SEPSIS REFLEX - [facility] (03/17/2021 13:35 EDT) LACTIC ACID - [facility] 1.0 <2.0 mmol/L 03/17/2021 14:33 EDT [facility] 03/17/2021 13:3 5 EDT 03/17/2021 14:12 EDT Jose Davila PA-C CHEMISTRY & BLOOD GAS ORDER ALVARO Final Result Performing Organization Address City/[facility]/ZIP Co de Phone Number [facility] [address] [place] [address] documented in this encounter Visit Diagnoses Not on filedocumented in this encounter Care Teams Wax Machine Operator Relationship Specialty Start Date End Date Ramana Rajput DO [address] [place] [phone] PCP - General Family Medicine - Primary Care 03/17/21 documented as of this encounter
--- OUTSIDE RECORDS SUMMARY | 2024-09-02 01:47 | XMS_ITS | Referral Summary ---
Author Organization [facility] Address [address] [place] [address] Care Team Providers Care Hospital Monitor Name Role Phone Ramana Rajput DO Primary Care Provider [phone] Allergies No known active allergies Medications allopurinoL (ZYLOPRIM) 100 mg tablet Take 1 Tablet by mouth daily. Active atorvastatin (LIPITOR) 20 mg tablet Take 1 Tablet by mouth daily. Active melatonin 10 mg tablet Take 10 mg by mouth at bedtime. May take up to 30mg a night Active vit C/E/Zn/coppr/jose tein/zeaxan (PRESERVISION AREDS-2 ORAL) Take by mouth 2 times daily. Active amLODIPine (NORVASC) 2.5 mg tablet Take 1 Tablet by mouth daily. For Reynalds - only takes it as needed for cold 06/07/2022 Active Active Problems Problem Noted Date Diagnosed Date Hyperlipidemia 10/23/2012 Age-related macular degeneration 10/23/2012 Raynaud's disease without gangrene 10/23/2012 Gout 10/23/2012 Social History Tobacco Use Types Packs/Day Years Used Date Smoking Tobacco: Never Smokeless Tobacco: Never Interpersonal Safety Answer Date Record ed Physically Hurt Never 07/11/2020 Verbally Threaten Not on file 07/11/2020 Sex and Gender Information Value Date Recorded Sex Assigned at Not on file Legal Sex Male 13:46 EST Gender Identity Male 07/11/2020 13:56 EST Sexual Orientation Not on file Plan of Treatment Upcoming Encounters Date Type Department Care Team (Late st Contact Info) Description 10/09/2024 14:45 EDT Office Visit [facility] Ophthalmology [facility] [address] [place] [address] Basia Latham MD [address] [place] [phone] Procedures Procedure Name Priority Date/Time Associated Diagnosis Comments HEPATITIS C AB W REFLEX TO HCV RNA BY PCR Routine 10/09/2023 16:00 EDT from Last 3 Months or Most Recently Relevant to Health Maintenance Results * HEPATITIS C AB W REFLEX TO HCV RNA BY PCR (10/09/2023 16:00 EDT) Hep C Antibody Negative Negative 10/10/2023 19:10 EDT [facility] Blood VENOUS BLOOD / Unknown 10/09/2023 16:00 EDT 10/10/2023 17:24 EDT us Provider Outr Resulting Lab CHEMISTRY & BLOOD GA S ORDERABLES Final Result [facility] [address] [place] [address] from Last 3 Months or Most Recently Relevant to Health Maintenance Insurance [facility] [place] [facility] [place] Care Teams Hospital Monitor Relationship Specialty Start Date End Date Ramana Rajput DO [address] [place] [phone] PCP - General Family Medicine - Primary Care 03/17/21
--- OUTSIDE RECORDS SUMMARY | 2024-09-02 01:47 | XMS_ITS | Encounter Summary ---
Author Organization [facility] Address [facility] [place] [address] Care Team Providers Care Assessment Analyst Name Role Phone Thelma Ramirez APRN Primary Care Provider Un available Encounter Details Date Type Department Care Team (Late st Contact Info) Description 03/30/2009 [place] [phone] Stanislav Mayo MD DERMATOLOGY Social History Tobacco Use Types Packs/Day Years Used Date Smoking Tobacco: Never Assessed Sex and Gender Information Value Date Recorded Sex Assigned at Not on file Gender Identity Not on file Sexual Orientation Not on file documented as of this encounter Plan of Treatment Not on file documented as of this encounter Procedures Procedure Name Priority Date/Time Associated Diagnosis Comments SURGICAL PATHOLOGY REPORT Routine 03/30/2009 7:04 PM EDT documented in this encounter Results * Surgical Pathology Report (03/30/2009 7:04 PM EDT) Surgical Pathology Report [id number] ? Location: 4M The signing pathologist has (i) examined the relevant preparation(s) for the specimen(s) and (ii) rendered or confirmed the diagnosis(es). . 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 Qty/Size/Weight: ?Single punch, 0.3 cm, excised to a depth ?of 0.5 cm, white bosch skin with a centrally- ?located, 0.2 x 0.1 cm depression. Sections/Processing : ??(T1) ??vms/CJL Microscopic Description Slides reviewed, microscopic description not recorded. Diagnosis A - Skin of right upper cutaneous lip, punch biopsy: ?Solar elastosis, chronic inflammation, epidermal hyperplasia, compact hyperkeratosis, parakeratosis, and verrucous changes (see Comment). CR-0 Dictated by: ?? Facundo Jackson MD ? Dermatopathology Fellow As the attending physician, I attest that I examined the histologic slides, and confirm Dr. Facundo Jackson's diagnosis. 03/31/09 D[facility] 04/01/09 Verified by: ? Geoffrey Montoya MD ?Dermatopathologis t ?(Electronic Signature) The attending pathologist whose signature appears on this report has reviewed all diagnostic slides and has edited the gross and/or microscopic portion of the report in rendering the final pathologic diagnosis. Comment Basal cell carcinoma is not seen with multiple deeper levels examined. ??There are foci with clumped keratohyaline granules. ??The differential includes a wart with changes of lichen simplex chronicus. ??Follow up is recommended with re-biopsy if there is persistent or recurrent lesion, or if clinically indicated. ??Dr. Villar concurs. HILARIO GAMBLEMICHAELA 03/30/2009 7:04 PM EDT Stanislav Mayo MD PATHOLOGY/CYTOLOGY O RDERARICKIE HILARIO ACOSTA documented in this encounter Visit Diagnoses Not on filedocumented in this encounter Care Teams Assessment Analyst Relationship Specialty Start Date End Date Thelma Ramirez, TYRON PCP - General 06/20/10 08/06/24 documented as of this encounter
--- OUTSIDE RECORDS SUMMARY | 2024-09-02 01:47 | XMS_ITS | Encounter Summary ---
Author Organization [facility] Address [address] [place] [address] Care Team Providers Care Pocket Setter Name Role Phone Ramana Rajput DO Primary Care Provider [phone] Reason for Visit * Reason Comments Follow-up Early AMD Encounter Details Date Type Department Care Team (Late st Contact Info) Description 08/04/2021 13:15 EST Office Visit [facility] Ophthalmology [facility] [address] [place] [address] Basia Latham MD [address] [place] [address] Social History Tobacco Use Types Packs/Day Years [...] Progress Notes * Basia Latham MD - 08/04/2021 1315 EST Chief Complaint Patient presents with ??? Follow-up Early AMD HPI The patient is a 70 y.o. male with h/o early-moderate dry AMD, both eyes, for years. Started AREDS 2 bid after last visit. Using Amsler grid seldomly, uses Sudoku puzzles to check for vision changes.New specs after last year are working well. Fhx AMD. No recent eye pain. Right Eye: NL Left Eye: NL Visual Aid: Glasses Current Rx Age Location: Both eyes Pain: 0 - No pain Quality: Severity: Mild Duration: Years Timing: Lasts: Context: Mild AMD - VA stable. Uses amsler grid seldom but has not noticed any changes. Modifying factors: Got new glasses after visit last year- working well. No new floaters or flashes of light. No eye pain. Associated Signs & Symptoms: Attestation: ROS Constitutional: NL ENT/Mouth NL Cardiovascular: High Cholesterol Respiratory: NL Gastrointestinal: NL Genitourinary: NL Musculoskeletal: NL Integumentary: NL Neurologic: NL Psychiatric: NL Endocrine: NL Hematologic: NL Immunologic: NL Supervisor Baking: Exposures: None Other: Attestation: Base Eye Exam Visual Acuity (Snellen - Linear) Right Left Dist cc 20/20 20/20 Near cc J1+ J1+ Correction: Glasses Tonometry (Applanation, 13:36) Right Left Pressure 20 20 Pupils Pupils Dark Light APD Right PERRL 5 4 None Left PERRL 5 4 None Visual Nielsen (Counting fingers) Right Left Full Full Extraocular Movement Right Left Full Full Neuro/Psych Oriented x3: Yes Mood/Affect: Normal Dilation Both eyes: Phenylephrine 2.5%, Tropicamide 1% @ 13:36 Slit Lamp and Fundus Exam External Exam [...] superior arcades Refraction Wearing Rx Sphere Cylinder [place] Add Right -1.50 +1.50 015 +2.75 Left -1.00 +1.25 175 +2.75 Age: 1yr Type: PAL Manifest Refraction MRx deferred DIAGNOSTIC TESTS: IMPRESSION & PLAN: ??? Early-moderate dry stage nonexudative age-related macular degeneration of right eye, drusen/early AMD left eye - Mild findings on OCT mac 07/2020. - continue AREDS 2 bid - incorporate dark leafy greens into diet (kale, chard, spinach) and colorful fruits and vegetables - Amsler grid weekly, may also use BidThatProjectu puzzles - f/u vision changes ??? Nuclear [...] as well. I completed this exam personally. I spent a total of 20 minutes on the date of this encounter meeting with the patient and reviewing documentation/coordinating care as described in the above note. No procedures were performed at the time of the visit. Basia Latham MD Patient Education Topic: macular degeneration Method: Verbal Taught to: Patient Barriers: None Outcomes: independent and verbalized understanding Signature: Basia Latham MD documented in this encounter Plan of Treatment Upcoming Encounters Date Type Department Care Team (Late st Contact Info) Description 10/09/2024 14:45 EDT Office Visit [facility] Ophthalmology - [address] [address] Basia Latham MD [address] [place] [phone] documented as of this encounter Visit Diagnoses Diagnosis Early dry stage nonexudative age-related macular degeneration of both eyes- Primary Nuclear senile cataract of both eyes Posterior vitreous detachment of left eye Vitreous degeneration Refractive error Unspecified disorder of refraction and accommodation documented in this encounter Historical Medications * This list may reflect changes made after this encounter. vit C/E/Zn/coppr/lutei n/zeaxan (PRESERVISION AREDS-2 ORAL) Take by mouth 2 times daily. added in this encounter Eye Exam Visual Acuity (Snellen - Linear) Right eye Left eye Dist cc 20/20 20/20 Near cc J1+ J1+ Correction: Glasses Tonometry (Applanation, 13:36) Right eye Left eye Pressure 20 20 Pupils Pupils Dark Light APD Right eye PERRL 5 4 None Left eye PERRL 5 4 None Visual Nielsen (Counting fingers) Right eye Left eye Full Full Extraocular Movement Right eye Left eye Full Full Neuro/Psych Oriented x3: Yes Mood/Affect: Normal Dilation Both eyes: Phenylephrine 2.5 %, Tropicamide 1% @ 13:36 External Exam Right eye Left eye External [...] in superior arcades Wearing Rx Sphere Cylinder [place] Add Right eye -1.50 +1.50 015 +2.75 Left eye -1.00 +1.25 175 +2.75 Age: 1yr Type: PAL Manifest Refraction MRx deferred Care Teams Pocket Setter Relationship Specialty Start Date End Date Ramana Rajput DO [address] [place] [phone] PCP - General Family Medicine - Primary Care 03/17/21 documented as of this encounter
--- OUTSIDE RECORDS SUMMARY | 2024-09-02 01:47 | XMS_ITS | Encounter Summary ---
Author Organization [facility] Address [address] [place] [address] Care Team Providers Care Slps Name Role Phone Unknown, Provider MD Primary Care Provider Unava ilable Encounter Details Date Type Department Care Team (Late st Contact Info) Description 10/15/2014 Historical Results Only [facility] - Main [place] [address] [place] [address] Christos Thompson MD [address] [place] [address] [address] [place] [phone] Social History Tobacco Use Types Packs/Day Years [...] Info) Description 10/09/2024 14:45 EDT Office Visit [facility] Ophthalmology [facility] [address] [place] [address] Basia Latham MD [address] [place] [phone] documented as of this encounter Procedures Procedure Name Priority Date/Time Associated Diagnosis Comments SURGICAL PATHOLOGY Routine 10/15/2014 documented in this encounter Results * SURGICAL PATHOLOGY (10/15/2014) 10/15/2014 10/15/2014 16: 02 EDT Narrative [facility] - 10/18/2014 10:43 EDT ----- ------- Name: SHEKHAR THOMASON ?: 48 ?Age/Sex: 68/M ?Unit#: [id number] ? Loc: END ? Status: DEP CLI ?? Reg Date: 10/15/14 ? Pt.Phone Number: ? ----- ------- Specimen: [id number] ? STATUS: SOUT ?Spec Date:10/15/14 ? Physician Copies: ?Christos Thompson MD ? Tissues: A ?? Endoscopy specimen (CECUM) ? Martínez Jimenez CPT: 68394 ?? Units: ??1 ?FINAL DIAGNOSIS ? Cecum, polyp, biopsy; ? - Tubular adenoma. ? GROSS DESCRIPTION ? Received in formalin labeled with the patient's name and A cecum polyp is a ? 0.4 cm pink-bosch soft tissue nodule, e.s. ??RM ?? PREOP DX/CLINICAL HISTORY ?Screening colonoscopy Signed ____(signature on file)____ Stanislav Luke M.D. 10/18/14 By the signature above, the attending physician certifies that he/she has personally conducted a gross and/or microscopic examination of the described specimens and rendered or confirmed the above diagnosis. Test Performed by [facility], [address] [place] [address] Piling Setter: Laura Moctezuma MD PHD ----- ------- us Christos Thompson MD PATHOLOGY ORDERABLES Final Resul t [facility] documented in this encounter Visit Diagnoses Not on filedocumented in this encounter Care Teams Slps Relationship Specialty Start Date End Date Unknown, Provider, PCP - General 10/19/14 07/10/20 documented as of this encounter
--- OUTSIDE RECORDS SUMMARY | 2024-09-02 01:47 | XMS_ITS | Encounter Summary ---
Author Organization [facility] Address [address] [place] [address] Care Team Providers Care Senior Principal Architect Name Role Phone Regulo Ramana Vaca DO Primary Care Provider [phone] Encounter Details Date Type Department Care Team (Late st Contact Info) Description 03/24/2021 Results Only [facility] - [address] [address] Jennifer Cardoso MD [address] [facility] [address] [place] [phone] Social History Tobacco Use Types Packs/Day Years [...] Info) Description 10/09/2024 14:45 EDT Office Visit [facility] Ophthalmology [facility] [address] [place], [place] [address] Basia Latham MD [address] [place] [phone] documented as of this encounter Procedures Procedure Name Priority Date/Time Associated Diagnosis Comments MISCELLANEOUS TEST, HENLEY Routine 03/24/2021 8:02 EDT documented in this encounter Results * MISCELLANEOUS TEST, HENLEY (03/24/2021 8:02 EDT) MISCELLANEOUS TEST - [facility] SEE BELOW () 03/28/2021 17:40 EDT [facility] Comment: Test ? Result ? Flag ??Unit ??RefValue Cryptosporidium Ag, F ?Negative ? Negative ADDITIONAL INFORMATION Test Performed by [employer]. Test Performed by: [place] [address] Dental Equipment Technician: Cian Duckworth M.D. Ph.D.; CLIA# [id number] 03/24/2021 8:02 EDT 03/24/2021 8:02 EDT Jennifer Cardoso MD CHEMISTRY & BLOOD GAS RAMILA MYERS Final Result [facility] [address] [place] [address] documented in this encounter Visit Diagnoses Not on filedocumented in this encounter Care Teams Senior Principal Architect Relationship Specialty Start Date End Date Ramana Rajput DO [address] [place] [phone] PCP - General Family Medicine - Primary Care 03/17/21 documented as of this encounter
--- OUTSIDE RECORDS SUMMARY | 2024-09-02 01:47 | XMS_ITS | Encounter Summary ---
Author Organization [facility] Address [address] [place] [address] Care Team Providers Care Asset Availability Leader Name Role Phone Ramana Rajput Nola CARVALHO Primary Care Provider [phone] Reason for Visit * Reason Comments Macular Degeneration Complete exam: Dry age-related macular degeneration, both eyes Encounter Details Date Type Department Care Team (Late st Contact Info) Description 09/03/2023 9:15 EST Office Visit [facility] Ophthalmology [facility] [address] [place] [address] Basia Latham MD [address] [place] [phone] Social History Tobacco Use Types Packs/Day Years [...] Progress Notes * Basia Latham MD - 09/03/2023 0915 EST Chief Complaint Patient presents with Macular Degeneration Complete exam: Dry age-related macular degeneration, both eyes HPI The patient is a 73 y.o. male with h/o early-moderate dry AMD, both eyes, for years. Has continued Preservision AREDS 2 bid. Uses Glycobiau puzzle lines to check for distortion, no changes. Fhx AMD. Happy with current Rx, real fine work can be difficult. Right Eye: Left Eye: Visual Aid: Glasses Current Rx Age Location: Both eyes Pain: 0 - No pain Quality: Severity: Duration: Timing: Lasts: Context: Complete exam: Dry age-related macular degeneration, both eyes Modifying factors: Stable vision reported over the past year. Uses sudoku puzzle grid to check of distortion and no changes. No floaters, flashes or eye pain. Associated Signs & Symptoms: Attestation: ROS Constitutional: NL ENT/Mouth NL Cardiovascular: High Cholesterol (Raynaud's) Respiratory: NL Gastrointestinal: NL Genitourinary: NL Musculoskeletal: NL Integumentary: NL Neurologic: NL Psychiatric: NL Endocrine: NL Hematologic: NL Immunologic: NL Morgue Keeper: Exposures: Other: Attestation: Base Eye Exam Visual Acuity (Snellen - Linear) Right Left Dist cc 20/20 -2 20/20 -1 Correction: Glasses Tonometry (Applanation, 9:34) Right Left Pressure 23 25 Pupils Pupils Right PERRL Left PERRL Visual Nielsen (Counting fingers) Right Left Full Full Extraocular Movement Right Left Full Full Neuro/Psych Oriented x3: Yes Mood/Affect: Normal Dilation Both eyes: Tropicamide 1%, Phenylephrine 2.5% @ 9:36 Slit Lamp and Fundus Exam External Exam [...] superior arcades Refraction Wearing Rx Sphere Cylinder [place] Add Right -1.75 +1.75 019 +2.25 Left -1.00 +1.50 174 +2.25 Age: 2 yr Type: PAL Manifest Refraction Comments: Pt defers Cycloplegic Refraction Sphere Cylinder [place] Right -1.75 +1.50 010 Left -1.00 +1.50 180 Final Rx Sphere Cylinder [place] Add Right -1.75 +1.50 010 +2.50 Left -1.00 +1.50 180 +2.50 DIAGNOSTIC TESTS: OCT, Retina - OU - Both Eyes OCT macula Right: signal strength: 9/10, thickness 269 microns, normal foveal contour, irreg rpe, intraretinalcystoid fluid/spaces? Left: signal strength: 9/10, thickness 279 microns, normal foveal contour, no intra/subretinal fluid IMPRESSION & PLAN: Intermediate stage nonexudative age-related macular degeneration of right eye/Early dry stage nonexudative age-related macular degeneration of left eye - some intraretinal cystoid fluid/spaces right eye, a little larger compared to 2020 but essentially stable on OCT today 09/03/2023. VA 20/20. Doesnot appear c/w AMD. Left eye looks good. - continue AREDS 2 bid - incorporate dark leafy greens into diet (kale, chard, spinach) and colorful fruits and vegetables - Amsler, Sudoku puzzles - f/u vision changes - return in 6 months DFE + mac OCT Nuclear senile cataract of both eyes - not visually significant - Observe Posterior vitreous detachment of left eye - retina flat with no holes/tears/retinal detachment - call for increase in flashes or floaters, decreased vision Refractive error - continue current Rx - MRx finalized I have reviewed the patient's past medical, family, social and surgical history. I have also reviewed the patient's medications, allergies, and problem list. I performed my own HPI and have reviewed the tech's ROS as well. I completed this exam personally. I spent a total of 30 minutes on the date of this encounter meeting with the patient and reviewing documentation/coordinating care as described in the above note. No procedures were performed at the time of the visit. Basia Latham MD I am scribing for Basia Latham MD, while she is personally performing the service. Elizabeth Howard, COA Patient Education Topic: macular degeneration Method: Verbal Taught to: Patient Barriers: None Outcomes: independent and verbalized understanding Signature: Basia Latham MD documented in this encounter Plan of Treatment Upcoming Encounters Date Type Department Care Team (Late st Contact Info) Description 10/09/2024 14:45 EDT Office Visit [facility] Ophthalmology [address] [place] [address] Basia Latham MD [address] [place] [phone] documented as of this encounter Procedures Procedure Name Priority Date/Time Associated Diagnosis Comments OCT, RETINA - OU - BOTH EYES Routine 09/03/2023 10:37 EST Intermediate stage nonexudative age-related macular degeneration of right eye Early dry stage nonexudative age-related macular degeneration of left eye documented in this encounter Results * OCT, RETINA - OU - BOTH EYES (09/03/2023 10:37 EST) Narrative [facility] OPHTHALMOLOGY - 09/03/2023 10:37 EST OCT macula Right: signal strength: 9/10, thickness 269 microns, normal foveal contour, irreg rpe, intraretinal cystoid fluid/spaces? Left: signal strength: 9/10, thickness 279 microns, normal foveal contour, no intra/subretinal fluid ?? us Basia Latham MD OPHTH TOMOGRAPHY Final Resu lt [facility] documented in this encounter Visit Diagnoses Diagnosis Intermediate stage nonexudative age-related macular degeneration of right eye- Primary Early dry stage nonexudative age-related macular degeneration of left eye Nuclear senile cataract of both eyes Posterior vitreous detachment of left eye Vitreous degeneration Refractive error Unspecified disorder of refraction and accommodation documented in this encounter Eye Exam Visual Acuity (Snellen - Linear) Right eye Left eye Dist cc 20/20 -2 20/20 -1 Correction: Glasses Tonometry (Applanation, 9:34) Right eye Left eye Pressure 23 25 Pupils Pupils Right eye PERRL Left eye PERRL Visual Nielsen (Counting fingers) Right eye Left eye Full Full Extraocular Movement Right eye Left eye Full Full Neuro/Psych Oriented x3: Yes Mood/Affect: Normal Dilation Both eyes: Tropicamide 1%, P henylephrine 2.5% @ 9:36 External Exam Right eye Left eye External [...] in superior arcades Wearing Rx Sphere Cylinder [place] Add Right eye -1.75 +1.75 019 +2.25 Left eye -1.00 +1.50 174 +2.25 Age: 2 yr Type: PAL Manifest Refraction Comments: Pt defers Cycloplegic Refraction Sphere Cylinder [place] Right eye -1.75 +1.50 010 Left eye -1.00 +1.50 180 Final Rx Sphere Cylinder [place] Add Right eye -1.75 +1.50 010 +2.50 Left eye -1.00 +1.50 180 +2.50 Care Teams Asset Availability Leader Relationship Specialty Start Date End Date Ramana Rajput DO [address] [place] [address] PCP - General Family Medicine - Primary Care 03/17/21 documented as of this encounter
--- OUTSIDE RECORDS SUMMARY | 2024-09-02 01:47 | XMS_ITS | Encounter Summary ---
Author Organization [facility] Address [address] [place] [address] Care Team Providers Care Software Validation Engineer Name Role Phone MirthadaniRamana DO Primary Care Provider [phone] Encounter Details Date Type Department Care Team (Late st Contact Info) Description 09/06/2021 Lab Requisition [facility] Pathology & Laboratory Medicine - [facility] [address] [place] [address] Outr Resulting Lab, Provider Social History Tobacco Use Types Packs/Day Years [...] Info) Description 10/09/2024 14:45 EDT Office Visit [facility] Ophthalmology [facility] [address] [place] [address] Basia Latham MD [address] [place] [phone] documented as of this encounter Procedures Procedure Name Priority Date/Time Associated Diagnosis Comments PSA TOTAL, DIAGNOSTIC Routine 09/06/2021 10:19 EST documented in this encounter Results * PSA TOTAL, DIAGNOSTIC (09/06/2021 10:19 EST) PSA 0.6 0.0 - 6.5 ng/mL 09/06/2021 22:25 EST [facility] Blood VENOUS BLOOD / Unknown 09/06/2021 10:19 EST 09/06/2021 21:30 EST Narrative [facility] - 09/06/2021 22:25 EST NOTE: Serum PSA concentration should not be interpreted as absolute evidence for the presence or absence of malignant disease. Assayed on Siemens [employer] [email or web address] XPT using chemiluminescent technology.??Values obtained by using different assay methods cannot be used interchangeably. us Provider Outr Resulting Lab CHEMISTRY & BLOOD GA S ORDERABLES Final Result [facility] [address] [place] [address] documented in this encounter Visit Diagnoses Not on filedocumented in this encounter Care Teams Software Validation Engineer Relationship Specialty Start Date End Date Ramana Rajput DO [address] [place] [phone] PCP - General Family Medicine - Primary Care 03/17/21 documented as of this encounter
--- OUTSIDE RECORDS SUMMARY | 2024-09-02 01:47 | XMS_ITS | Encounter Summary ---
Author Organization [facility] Address [address] [place] [address] Care Team Providers Care Senior Information Developer Name Role Phone Unknown, Provider Primary Care Provider Martínez Andino MD Primary Care Provider Ramana Barragan DO Primary Care Provider [phone] Encounter Details Date Type Department Care Team (Late st Contact Info) Description 12/15/2019 Lab Requisition [facility] Pathology & Laboratory Medicine - [facility] [address] [place] [address] Natali Chucrh PA [address] [address] [place] [address] Dermatitis, unspecified Social History Tobacco Use Types Packs/Day Years [...] 10/09/2024 14:45 EDT Office Visit [facility] Ophthalmology [facility] [address] [place], [place] [phone] Basia Latham MD [address] [place] [phone] documented as of this encounter Procedures Procedure Name Priority Date/Time Associated Diagnosis Comments SURGICAL PATHOLOGY Today 12/15/2019 11 :46 EDT Dermatitis, unspecified documented in this encounter Results * SURGICAL PATHOLOGY (12/15/2019 11:46 EDT) Final Diagnosis A. SKIN OF CHEST, RIGHT LATERAL SUPERIOR, PUNCH BIOPSY: - Lichenoid dermatitis. See microscopic and comment. 12/17/2019 9:12 [facility] at 0912 Attestation By the signature below, the attending physician certifies that they have 1) personally conducted a gross and/or microscopic examination of the described specimen(s), and/or personally interpreted the results of laboratory testing of the described specimen(s), and 2) personally rendered or confirmed the above diagnosis. 12/17/2019 9:12 [facility] at 0912 Diagnosis Comment The morphologic findings are consistent a lichenoid dermatitis and in the clinical context, would be consistent with lichen planus. 12/17/2019 9:12 [facility] Microscopic Description There is compact orthohyperkeratosis . The epidermis varies in thickness and the rete ridges are tapered. There is a band-like infiltrate that partially obscures the dermal-epidermal junction. The infiltrate is composed primarily of lymphomononuclear cells with scattered melanophages. There is vacuolar change along the basal zone with clusters of necrotic keratinocytes (Civatte bodies). The keratinocytes have abundant glassy cytoplasm. There is wedge-shaped hypergranulosis. 12/17/2019 9:12 [facility] Clinical History Numerous purple flat coalescing into patches Lichen planus versus other [facility] 12/17/2019 9:12 [facility] Gross Description A. Received in formalin labelled with proper patient identification (initials W, E) and right lateral superior chest is a punch biopsy of white-bosch somewhat scaly skin (0.5 cm in diameter and 0.7 cm in thickness). The tissue is bisected and entirely submitted in A1. Cynthia Cleveland 12/16/2019 10:14 12/17/2019 9:12 [facility] Scanned Images 12/17/2019 9:12 EDT [facility] Tissue TISSUE SPECIMEN FROM SKIN / Unknown 12/15/2019 11:46 EDT 12/15/2019 20:57 EDT Natali HAMMONDS PATHOLOGY ORDERABLES Final Result [facility] [address] [place] [address] documented in this encounter Visit Diagnoses Diagnosis Dermatitis, unspecified documented in this encounter Care Teams Senior Information Developer Relationship Specialty Start Date End Date Unknown, Provider, PCP - General 10/19/14 07/10/20 Martínez Jimenez MD PCP - General 07/11/20 03/16/21 Ramana Rajput DO [address] [place] [phone] PCP - General Family Medicine - Primary Care 03/17/21 documented as of this encounter
--- OUTSIDE RECORDS SUMMARY | 2024-09-02 01:47 | XMS_ITS | Encounter Summary ---
Author Organization [facility] Address [address] [place] [address] Care Team Providers Care Sdv Pilot/Navigator/Dds Operator Name Role Phone Ramana Rajput DO Primary Care Provider [phone] Encounter Details Date Type Department Care Team (Late st Contact Info) Description 10/10/2023 Lab Requisition [facility] Pathology & Laboratory Medicine - [facility] [address] [place] [address] Outr Resulting Lab, Provider Social History Tobacco [...] Info) Description 10/09/2024 14:45 EDT Office Visit [facility] Ophthalmology [facility] [address] [place] [address] Basia Latham MD [address] [place] [phone] documented as of this encounter Procedures Procedure Name Priority Date/Time Associated Diagnosis Comments HEPATITIS C AB W REFLEX TO HCV RNA BY PCR Routine 10/09/2023 16:00 EDT PSA TOTAL, DIAGNOSTIC Routine 10/09/2023 16:00 EDT documented in this encounter Results * PSA TOTAL, DIAGNOSTIC (10/09/2023 16:00 EDT) Pathologist [facility] PSA 0.7 <=6.5 ng/mL 10/10/2023 18:29 EDT [facility] Blood VENOUS BLOOD / Unknown 10/09/2023 16:00 EDT 10/10/2023 17:24 EDT Narrative [facility] - 10/10/2023 18:29 EDT NOTE: Serum PSA concentration should not be interpreted as absolute evidence for the presence or absence of malignant disease. Assayed on Polar Roseaur XPT using chemiluminescent technology.??Values obtained by using different assay methods cannot be used interchangeably. us Provider Outr Resulting Lab CHEMISTRY & BLOOD GA S ORDERABLES Final Result Performing Organization Address City/[facility]/ZIP Co de Phone Number [facility] [address] [place] [address] * HEPATITIS C AB W REFLEX TO HCV RNA BY PCR (10/09/2023 16:00 EDT) Pathologist [facility] Hep C Antibody Negative Negative 10/10/2023 19:10 EDT [facility] Blood VENOUS BLOOD / Unknown 10/09/2023 16:00 EDT 10/10/2023 17:24 EDT us Provider Outr Resulting Lab CHEMISTRY & BLOOD GA S ORDERABLES Final Result [facility] [address] [place], [place] [phone] documented in this encounter Visit Diagnoses Not on filedocumented in this encounter Care Teams Sdv Pilot/Navigator/Dds Operator Relationship Specialty Start Date End Date Ramana Rajput DO [address] [place] [phone] PCP - General Family Medicine - Primary Care 03/17/21 documented as of this encounter
--- OUTSIDE RECORDS SUMMARY | 2024-09-02 01:47 | XMS_ITS | Encounter Summary ---
Author Organization [facility] Address [address] [place] [address] Care Team Providers Care Well Cleaner Name Role Phone Unknown, Provider MD Primary Care Provider Unava ilable Encounter Details Date Type Department Care Team (Late st Contact Info) Description 09/02/2015 Historical Results Only [facility] Radiology Results [address] [place] [address] Martínez Jimenez MD Social History Tobacco Use Types Packs/Day Years [...] Info) Description 10/09/2024 14:45 EDT Office Visit [facility] [address] [place] [address] Basia Latham MD [address] [place] [phone] documented as of this encounter Visit Diagnoses Not on filedocumented in this encounter Care Teams Well Cleaner Relationship Specialty Start Date End Date Unknown, Provider, PCP - General 10/19/14 07/10/20 documented as of this encounter
--- OUTSIDE RECORDS SUMMARY | 2024-09-02 01:47 | XMS_ITS | Encounter Summary ---
Author Organization [facility] Address [address] [place] [address] Care Team Providers Care Business Solutions Consultant Name Role Phone Ramana Rajput Primary Care Provider Reason for Visit * Reason Comments Macular Degeneration Complete exam: ARMD , both eyes Encounter Details Date Type Department Care Team (Late st Contact Info) Description 03/25/2024 9:15 EDT Office Visit [facility] Ophthalmology [facility] [address] [place] [address] Basia Latham MD [address] [place] [phone] Social History Tobacco Use Types Packs/Day Years [...] Progress Notes * Basia Latham MD - 03/25/2024 6152 EDT Chief Complaint Patient presents with Macular Degeneration Complete exam: ARMD, both eyes HPI The patient is a 73 y.o. male with h/o early-intermediate dry AMD, both eyes, for years. Taking Preservision AREDS 2 bid. Uses Application Expertsu puzzle lines to check for distortion, no changes. Fhx AMD. Happy with current Rx, real fine work can be difficult. Right Eye: NL Left Eye: NL Visual Aid: Glasses Current Rx Age Location: Both eyes Pain: 0 - No pain Quality: Severity: Duration: Timing: Lasts: Context: Complete exam: ARMD, both eyes Modifying factors: Stable vision reported. Checks for distortion on Sudoku puzzles and doesn't notice changes. 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 No eye discomfort. Rare floaters/flashes Associated Signs & Symptoms: Takes AREDS Attestation: ROS Constitutional: NL ENT/Mouth Cardiovascular: High Cholesterol Respiratory: NL Gastrointestinal: NL Genitourinary: NL Musculoskeletal: Integumentary: NL Neurologic: NL Psychiatric: NL Endocrine: NL Hematologic: NL Immunologic: Weigher Alloy: Exposures: None Other: Attestation: Base Eye Exam Visual Acuity (Snellen - Linear) Right Left Dist cc 20/20 20/20 -2 Correction: Glasses Tonometry (Applanation, 9:34) Right Left Pressure 20 21 Pupils Pupils APD Right PERRL None Left PERRL None Visual Nielsen (Counting fingers) Right Left Full Full Extraocular Movement Right Left Full Full Neuro/Psych Oriented x3: Yes Mood/Affect: Normal Dilation Both eyes: Tropicamide 1%, Phenylephrine 2.5% @ 9:35 Slit Lamp and Fundus Exam External Exam [...] superior arcades Refraction Wearing Rx Sphere Cylinder [place] Add Right -1.50 +1.75 018 +2.75 Left -1.00 +1.25 174 +2.75 Age: 2yrs Type: PAL Manifest Refraction Pt defers DIAGNOSTIC TESTS: OCT, Retina - OU - Both Eyes OCT macula Right: signal strength: 08/10, thickness 272 microns, normal foveal contour, irregular rpe, cystoidspaces/fluid Left: signal strength: 10/10, thickness 281 microns, normal foveal contour, no intra/subretinal fluid, mildly irreg rpe IMPRESSION & PLAN: Intermediate stage nonexudative age-related macular degeneration of right eye/Early dry stage nonexudative age-related macular degeneration of left eye intraretinal cystoid fluid/spaces right eye, a little larger compared to 2020 but stable compared to 08/2023 and 08/2022. Does not appear c/w AMD. Left eye looks good. - continue AREDS 2 bid - incorporate dark leafy greens into diet (kale, chard, spinach) and colorful fruits and vegetables - Amsler, Sudoku puzzles - f/u vision changes - return in 6 months complete exam + mac OCT Nuclear senile cataract of both eyes - not visually significant - Observe Posterior vitreous detachment of left eye - retina flat with no holes/tears/retinal detachment - call for increase in flashes or floaters, decreased vision Refractive error - continue current Rx I [...] Info) Description 10/09/2024 14:45 EDT Office Visit [facility] Ophthalmology - [place] [address] [place] [address] Basia Latham MD [address] [place] [phone] documented as of this encounter Procedures Procedure Name Priority Date/Time Associated Diagnosis Comments OCT, RETINA - OU - BOTH EYES Routine 03/25/2024 10:11 EDT Intermediate stage nonexudative age-related macular degeneration of right eye Early dry stage nonexudative age-related macular degeneration of left eye documented in this encounter Results * OCT, RETINA - OU - BOTH EYES (03/25/2024 10:11 EDT) Narrative [facility] OPHTHALMOLOGY - 03/25/2024 10:11 EDT OCT macula Right: signal strength: 08/10, thickness 272 microns, normal foveal contour, irregular rpe, cystoid spaces/fluid Left: signal strength: 10/10, thickness 281 microns, normal foveal contour, no intra/subretinal fluid, mildly irreg rpe ?? us Basia Latham MD OPHTH TOMOGRAPHY Final Resu lt [facility] OPHTHALMOLOGY documented in this encounter Visit [...] eye Left eye Dist cc 20/20 20/20 -2 Correction: Glasses Tonometry (Applanation, 9:34) Right eye Left eye Pressure 20 21 Pupils Pupils APD Right eye PERRL None Left eye PERRL None Visual Nielsen (Counting fingers) Right eye Left eye Full Full Extraocular Movement Right eye Left eye Full Full Neuro/Psych Oriented x3: Yes Mood/Affect: Normal Dilation Both eyes: Tropicamide 1%, P henylephrine 2.5% @ 9:35 External Exam Right eye Left eye External [...] in superior arcades Wearing Rx Sphere Cylinder [place] Add Right eye -1.50 +1.75 018 +2.75 Left eye -1.00 +1.25 174 +2.75 Age: 2yrs Type: PAL Manifest Refraction Pt defers Care Teams Business Solutions Consultant Relationship Specialty Start Date End Date Ramana Rajput DO [address] [facility] [place] [phone] PCP - General Family Medicine - Primary Care 03/17/21 documented as of this encounter
--- OUTSIDE RECORDS SUMMARY | 2024-09-02 01:47 | XMS_ITS | Encounter Summary ---
Author Organization [facility] Address [address] [place] [address] Care Team Providers Care Director Of Sleep Name Role Phone Ramana Rajput DO Primary Care Provider [phone] Reason for Visit * Reason Onset Date Comments Medication Questions 05/08/2024 Encounter Details Date Type Department Care Team (Late st Contact Info) Description 05/08/2024 Telephone [facility] [address] [place] [address] Basia aLtham MD [address] [place] [phone] Medication Questions Social History Tobacco Use Types Packs/Day Years [...] on file documented as of this encounter Miscellaneous Notes * Telephone Encounter - Joanne Ely - 05/08/2024 1030 EDT PCP called to ask if it was okay to stop taking areds-2 because of the mary in it. They did blood work and his numbers where up for the thyroid. So she wanted to stop for 8 weeks to check it again. Please call the provider Mona Singh PSYCHIATRIC TECH-C [phone] documented in this encounter Plan of Treatment Upcoming Encounters Date Type Department Care Team (Late st Contact Info) Description 10/09/2024 14:[address] [facility] Ophthalmology [facility] [address] [place] [address] Basia Latham MD [address] [place] [phone] documented as of this encounter Visit Diagnoses Not on filedocumented in this encounter Care Teams Director Of Sleep Relationship Specialty Start Date End Date Ramana Rajput DO [address] [place] [phone] PCP - General Family Medicine - Primary Care 03/17/21 documented as of this encounter
--- OUTSIDE RECORDS SUMMARY | 2024-09-02 01:47 | XMS_ITS | Clinical Summary ---
Author Organization [facility] Address [address] [place] [address] Care Team Providers Care Photographic Artist Name Role Phone Ramana Rajput DO Primary Care Provider [phone] Allergies No known active allergies Medications allopurinoL [...] Raynaud's disease without gangrene 10/23/2012 Gout 10/23/2012 Surgical History Surgery Date Site/Laterality Comments APPENDECTOMY Family History Medical History Relation Comments Macular Degeneration Mother Relation Status Comments Mother Social History Tobacco Use Types Packs/Day Years Used Date Smoking Tobacco: Never Smokeless Tobacco: Never Interpersonal Safety Answer Date Record ed Physically Hurt Never 07/11/2020 Verbally Threaten Not on file 07/11/2020 Sex and Gender Information Value Date Recorded Sex Assigned at Not on file Legal Sex Male 13:46 EST Gender Identity Male 07/11/2020 13:56 EST Sexual Orientation Not on file Obstetrics History Plan of Treatment Upcoming Encounters Date Type Department Care Team ([facility] st Contact Info) Description 10/09/2024 14:45 EDT Office Visit [facility] Ophthalmology [facility] [address] [place] [address] Basia Latham MD [address] [place] [phone] Health Maintenance Due Date Last Done Comments Fall Risk Screening 2014 COVID-19 Vaccine ( season) 2024 RSV Immunization ( o r 60+ Years) (1 - 1-dose 75+ series) 2024 Hepatitis C Screen Completed 10/09/2023 Procedures Procedure Name Priority Date/Time Associated Diagnosis Comments HEPATITIS C AB W REFLEX TO HCV RNA BY PCR Routine 10/09/2023 16:00 EDT from Last 3 Months or Most Recently Relevant to Health Maintenance Results * HEPATITIS C AB W REFLEX TO HCV RNA BY PCR (10/09/2023 16:00 EDT) Hep C Antibody Negative Negative 10/10/2023 19:10 EDT [facility] Blood VENOUS BLOOD / Unknown 10/09/2023 16:00 EDT 10/10/2023 17:24 EDT us Provider Outr Resulting Lab CHEMISTRY & BLOOD GA S ORDERABLES Final Result [facility] [address] [place], [place] [phone] from Last 3 Months or Most Recently Relevant to Health Maintenance Insurance [facility] MEDICARE [place] [facility] [place] Care Teams Photographic Artist Relationship Specialty Start Date End Date Ramana Rajput DO [address] [place] [phone] PCP - General Family Medicine - Primary Care 03/17/21
--- OUTSIDE RECORDS SUMMARY | 2024-09-02 01:47 | XMS_ITS | Encounter Summary ---
Author Organization [facility] Address [address] [place] [address] Care Team Providers Care Nursing Service Director Name Role Phone MirthadaniRamana DO Primary Care Provider [phone] Encounter Details Date Type Department Care Team (Late st Contact Info) Description 10/01/2022 Lab Requisition [facility] Pathology & Laboratory Medicine - [facility] [address] [place] [address] Outr Resulting Lab, Provider Social History Tobacco [...] Info) Description 10/09/2024 14:45 EDT Office Visit [facility] Ophthalmology [facility] [address] [place] [address] Basia Latham MD [address] [place] [phone] documented as of this encounter Procedures Procedure Name Priority Date/Time Associated Diagnosis Comments PSA TOTAL, DIAGNOSTIC Routine 10/01/2022 14:18 EST documented in this encounter Results * PSA TOTAL, DIAGNOSTIC (10/01/2022 14:18 EST) PSA 0.7 <=6.5 ng/mL 10/02/2022 0:28 EST [facility] Blood VENOUS BLOOD / Unknown 10/01/2022 14:18 EST 10/01/2022 21:40 EST Narrative [facility] - 10/02/2022 0:28 EST NOTE: Serum PSA concentration should not be interpreted as absolute evidence for the presence or absence of malignant disease. Assayed on Siemens Optimum MagazineIA Sensorinaur XPT using chemiluminescent technology.??Values obtained by using different assay methods cannot be used interchangeably. us Provider Outr Resulting Lab CHEMISTRY & BLOOD GA S ORDERABLES Final Result [facility] [address] [place] [address] documented in this encounter Visit Diagnoses Not on filedocumented in this encounter Care Teams Nursing Service Director Relationship Specialty Start Date End Date Ramana Rajput DO [address] [place] [phone] PCP - General Family Medicine - Primary Care 03/17/21 documented as of this encounter
--- OUTSIDE RECORDS SUMMARY | 2024-09-02 01:47 | XMS_ITS | Encounter Summary ---
Author Organization [facility] Address [address] [place] [address] Care Team Providers Care Manufacturing Assembler Name Role Phone Unknown, Provider MD Primary Care Provider Unava ilable Encounter Details Date Type Department Care Team (Latest Contact Info) Description 09/02/2015 13:46 EST - 09/02/2015 23:59 EST Hospital Encounter [facility] [address] [place] [address] Unknown, Provider, Discharge Disposition: Home or Self Care Social History Tobacco Use Types Packs/Day Years Used Date Smoking Tobacco: Never Assessed Sex and Gender Information Value Date Recorded Sex Assigned at Not on file Legal Sex Male 13:46 EST Gender Identity Male 07/11/2020 13:56 EST Sexual Orientation Not on file documented as of this encounter Discharge Disposition Disposition Code Departure Means Destination Home or Self Snf documented in this encounter Plan of Treatment Upcoming Encounters Date Type Department Care Team (Late st Contact Info) Description 10/09/2024 14:45 EDT Office Visit [facility] Ophthalmology [facility] [address] [place] [address] Basia Latham MD [address] [place] [phone] documented as of this encounter Visit Diagnoses Not on filedocumented in this encounter Care Teams Manufacturing Assembler Relationship Specialty Start Date End Date Unknown, Provider, PCP - General 10/19/14 07/10/20 documented as of this encounter
--- OUTSIDE RECORDS SUMMARY | 2024-09-02 01:47 | XMS_ITS | Clinical Summary ---
Author Organization [facility] Address [facility] [place] [address] Care Team Providers Care Community Living Instructor Name Role Phone None Primary Care Provider Unavailabl e Allergies Active Allergy Reactions Criticality Noted Date Comments Cis Free Text Allergy hayfever. Medications Medication Sig Dispensed Refills Start Date End Date Status CIS Free Text Med - Aspirin 03/30/2009 Active allopurinol (ZYLOPRIM) 100 mg tablet 03/30/2009 Active multivitamin capsule 03/30/2009 Acti ve Social History Tobacco Use Types Packs/Day Years Used Date Smoking Tobacco: Never Assessed Sex and Gender Information Value Date Recorded Sex Assigned at Not on file Gender Identity Not on file Sexual Orientation Not on file Plan of Treatment Health Maintenance Due Date Last Done Comments CT Colonography 1949 Colonoscopy 1949 Colorectal Cancer Screening 1949 FIT DNA 1949 FIT 1949 Sigmoidoscopy (10 year) with FIT yearly 1949 Sigmoidoscopy 1949 Hepatitis C Screening 1967 Lipid Screening 1967 Tetanus/Diphtheria/Pertussis Vaccines (1 - Tdap) 08/25 Pneumoccocal Vaccine: 50+ (1 of 1 - PCV) 1999 Zoster vaccine (1 of 2) 1999 Advance Directive 2004 Covid-19 Vaccine (1 - 2023- season) 2024 Influenza (Flu) vaccine (1 o f 1 - Influenza standard series) 03/29/2024 RSV Vaccine (1 - 1-dose 75+ series) 2024 Care Teams Community Living Instructor Relationship Specialty Start Date End Date None None PCP - General 08/07/24
--- OUTSIDE RECORDS SUMMARY | 2024-09-02 01:47 | XMS_ITS | Encounter Summary ---
Author Organization [facility] Address [address] [place] [address] Care Team Providers Care Plastic Boat Patcher Name Role Phone Unknown, Provider MD Primary Care Provider Unava ilable Encounter Details Date Type Department Care Team (Late st Contact Info) Description 09/03/2015 Historical Results Only [facility] Radiology Results [address] [place] [address] Martínez Jimenez MD Social History Tobacco Use [...] Info) Description 10/09/2024 14:45 EDT Office Visit [facility] [address] [place] [address] Basia Latham MD [address] [place] [phone] documented as of this encounter Procedures Procedure Name Priority Date/Time Associated Diagnosis Comments US ABDOMINAL AORTA-ILIAC DUPLEX (NC) 09/03/2015 10:36 EST documented in this encounter Results * US ABDOMINAL AORTA-ILIAC DUPLEX (NC) (09/03/2015 10:36 EST) Anatomical Region Laterality Modality Other 09/03/2015 10:3 6 EST Narrative 09/03/2015 10:39 EST ? EXAM: ULTRASOUND/AORTA WELCOME TO [facility] EX. D/ (1101) ? CLINICAL INFORMATION: ? Z13.6 SCREENING FOR AAA ? Indication: Z13.6 SCREENING FOR AAA. ? Comparison: None. ? Technique: Sonographic examination of the abdominal aorta was ? performed. Color Doppler imaging was also utilized. ? Findings: ? The proximal abdominal aorta has an A-P diameter of 2.2 centimeters. ? The mid abdominal aorta has an A-P diameter of 1.8 centimeters. ? The distal abdominal aorta has an A-P diameter of 1.9 centimeters. ? The iliac bifurcation is unremarkable. ? Impression: ? 1. Normal ultrasound of the abdominal aorta ? REPORT SIGNED IN OTHER VENDOR SYSTEM 09/03/2015 ?Reported By: Dusty Styles MD ? CC: ? Transcribed Date/Time: 09/03/2015 (1039) ? Engraver Set Up Operator: ? Printed Date/Time: 01/08/2019 (1219) ? PAGE 1 ? Signed Report ? Procedure Note Dusty Styles MD - 06/03/2019 EXAM: ULTRASOUND/AORTA WELCOME TO [facility] EX. D/ (1101) CLINICAL INFORMATION: Z13.6 SCREENING FOR AAA Indication: Z13.6 SCREENING FOR AAA. Comparison: None. Technique: Sonographic examination of the abdominal aorta was performed. Color Doppler imaging was also utilized. Findings: The proximal abdominal aorta has an A-P diameter of 2.2centimeters. The mid abdominal aorta has an A-P diameter of 1.8 centimeters. The distal abdominal aorta has an A-P diameter of 1.9 centimeters. The iliac bifurcation is unremarkable. Impression: 1. Normal ultrasound of the abdominal aorta REPORT SIGNED IN OTHER VENDOR SYSTEM 09/03/2015 Reported By: Dusty Styles MD CC: Transcribed Date/Time: 09/03/2015 (2583) Engraver Set Up Operator: Printed Date/Time: 01/08/2019 (8232) PAGE 1 Signed Report us Martínez Jimenez MD IMG US VASCULAR ORDERABL ES Final Result documented in this encounter Visit Diagnoses Not on filedocumented in this encounter Care Teams Plastic Boat Patcher Relationship Specialty Start Date End Date Unknown, Provider, PCP - General 10/19/14 07/10/20 documented as of this encounter
--- OUTSIDE RECORDS SUMMARY | 2024-09-02 01:47 | XMS_ITS | Encounter Summary ---
Author Organization [facility] Address [address] [place] [address] Care Team Providers Care Starting Gate Driver Name Role Phone Unavailable Primary Care Provider Unavailabl e Encounter Details Date Type Department Care Team (Latest Contact Info) Description 10/15/2014 15:12 EDT - 10/15/2014 23:59 EDT Hospital Encounter [facility] [address] [place] [address] Unknown, Provider, MD Discharge Disposition: Home or Self Care Social History Tobacco Use Types Packs/Day Years Used Date Smoking Tobacco: Never Assessed Sex and Gender Information Value Date Recorded Sex Assigned at Not on file Legal Sex Male 13:46 EST Gender Identity Male 07/11/2020 13:56 EST Sexual Orientation Not on file documented as of this encounter Discharge Disposition Disposition Code Departure Means Destination Home or Self Mcfp documented in this encounter Plan of Treatment Upcoming Encounters Date Type Department Care Team (Late st Contact Info) Description 10/09/2024 14:45 EDT Office Visit [facility] Ophthalmology [facility] [address] [place] [address] Basia Latham MD [address] [place] [phone] documented as of this encounter Visit Diagnoses Not on filedocumented in this encounter
[2024-09-02 11:24] LABS: TSH 8.14 uIU/mL (0.36-3.74)
== END 2024-09-02 01:10 | disposition home or self-care (01) ==
LOC: LBO 01:09
PROVIDERS: PCP Family Medicine; Referring Provider Nurse Practitioner Family; Visit Provider Nurse Practitioner Family
DX: E03.9 Hypothyroidism, unspecified (principal)
CPT/HCPCS: 36415; 84439; 84443

== ENCOUNTER 2024-11-09 03:01 | Outpatient (CLI) | payer MEDICARE, BC, SELFPAY ==
[2024-11-09 11:29] LABS: TSH (W/Ref FT4) 3.39 uIU/mL (0.36-3.74)
[2024-11-09 18:09] LABS: PSA, Screening 0.6 ng/mL (<=6.5)
== END 2024-11-09 03:02 | disposition home or self-care (01) ==
PROVIDERS: PCP Family Medicine; Referring Provider Nurse Practitioner Family; Visit Provider Nurse Practitioner Family
DX: E03.9 Hypothyroidism, unspecified (principal); Z80.42 Family history of malignant neoplasm of prostate; Z12.5 Encounter for screening for malignant neoplasm of prostate
CPT/HCPCS: 84153; 84443